=== PATIENT | male | born 1985 | race Two or more races ===

== ENCOUNTER 2018-12-23 21:07 | Emergency (ER) | payer MEDICAID, OTHER ==
[~2018-12-23] VITALS: Ht 170.2 cm; Wt 82.6 kg
--- NOTE | 2018-12-23 21:16 | NUR ---
"BIBSELF C/O SI WITH PLAN TO SHOOT SELF WITH GUN, DENIES HI " pt to bed 12, pt on monitor, all belogings in locker for safety, 1:1 sitter at bedside. vss, nad noted. pending md benavidez
--- NOTE | 2018-12-23 21:20 | NUR ---
URINE COLLECTED AND SENT TO LAB
[2018-12-23] MEDS ORDERED: OLANZAPINE 5 MG TABLET PO ONE (21:30)
[2018-12-23] MEDS ORDERED: OLANZAPINE 5 MG TABLET ONE (21:35)
[2018-12-23 21:42] LABS: BASOPHILS # (AUTO) 0.1 /CMM (0.0-0.2); BASOPHILS % (AUTO) 0.6 % (0.0-2.0); EOSINOPHILS % (AUTO) 2.3 % (0.0-6.0); HEMATOCRIT 40 % (39-51); HEMOGLOBIN 13.3 g/dL (13.5-17.5); LYMPHOCYTES % (AUTO) 32.7 % (20.0-44.0); MEAN CORPUSCULAR HGB CONC 33 g/dl (31.0-36.0); MEAN CORPUSCULAR VOLUME 81 fL (80-96); MONOCYTES # (AUTO) 0.8 /CMM (0.1-1.30); MONOCYTES % (AUTO) 8.3 % (2.0-12.0); NEUTROPHILS # (AUTO) 5.1 /CMM (1.8-8.9); NEUTROPHILS % (AUTO) 56.1 % (43.0-81.0); PLATELET COUNT (AUTO) 314 /CMM (150-450); RED BLOOD CELL COUNT(AUTO) 4.92 MIL/uL (4.5-6.0); WHITE BLOOD COUNT (AUTO) 9.2 K/uL (4.3-11.0)
[2018-12-23 21:43] LABS: APPEARANCE,URINE Clear (CLEAR); BILIRUBIN,URINE Negative (NEGATIVE); BLOOD, URINE Negative Ery/uL (NEGATIVE); COLOR,URINE Yellow (YELLOW); KETONES,URINE Negative (NEGATIVE); LEUKOCYTE ESTERASE ,URINE Negative (NEGATIVE); NITRITE, URINE Negative (NEGATIVE); PROTEIN,URINE Negative (NEGATIVE); UGLUCOSE Negative (NEGATIVE)
[2018-12-23 21:51] LABS: POTASSIUM 3.1 mmol/L (3.5-5.1)
[2018-12-23 21:57] LABS: ALBUMIN 3.8 g/dL (3.4-5.0); BILIRUBIN,DIRECT 0.1 mg/dL (0.0-0.2); BILIRUBIN,TOTAL 0.6 mg/dL (0.2-1.0); TOTAL PROTEIN, SERUM 7.9 g/dL (6.4-8.2)
[2018-12-23 21:58] LABS: SALICYLATE 1.7 mg/dL (2.8-20.0)
--- NOTE | 2018-12-23 22:16 | NUR ---
CALLED [facility] FOR TRANSFER. FAXED CLINICALS.
[2018-12-23] MEDS ORDERED: POTASSIUM CHLORIDE 20 MEQ TAB.PRT.SR PO ONE ×2 (22:30→22:38)
--- NOTE | 2018-12-23 22:54 | NUR ---
PER [facility] INTAKE. NO BEDS AVAILABLE RIGHT NOW. WILL TRY AFTER DISCHARGES AT 8AM
--- NOTE | 2018-12-24 00:03 | NUR ---
Patient is resting comfortably in bed with eyes closed. Easily aroused. VSS. SITTER AT BEDSIDE
--- NOTE | 2018-12-24 03:21 | NUR ---
Patient is resting comfortably in bed with eyes closed. Easily aroused. VSS. SITTER AT BEDSIDE
--- NOTE | 2018-12-24 06:31 | NUR ---
Patient is resting comfortably in bed with eyes closed. Easily aroused. VSS. SITTER AT BEDSIDE.
--- NOTE | 2018-12-24 07:22 | NUR ---
ASSESSED PT ON BED ASLEEP, EASILY AROUSABLE, VS STABLE, KEPT RESTED AND COMFORTABLE, AWAITING [facility] FOR BED AVAILABILITY.
--- NOTE | 2018-12-24 07:47 | NUR ---
FOOD TRAY PROVIDED.
--- NOTE | 2018-12-24 09:27 | NUR ---
AWAITING ROOM AVAILABILITY ON [facility].
--- NOTE | 2018-12-24 10:03 | NUR ---
GILLIAN contacted Pranay at [facility] inquiring about bed availability. Per Pranay, there are 22 pts on the waitlist due to no discharges over the weekend. Pranay informed GILLIAN he will call back GILLIAN in an hour with an update.
--- NOTE | 2018-12-24 10:54 | NUR ---
PT ASLEEP ON BED EASILY AROUSABLE, NOT IN RESPIRATORY DISTRESS, V/S STABLE, KEPT RESTED AND COMFORTABLE, AWAITING ROOM AT [facility].
--- NOTE | 2018-12-24 12:23 | NUR ---
FOOD TRAY PROVIED.
--- NOTE | 2018-12-24 12:41 | NUR ---
GILLIAN contacted Pranay at [facility] for an update on bed availability. Per Pranay, there are 14 pts on the waitlist and they are awaiting discharges at this time at [facility] and [place]. Addendum: 12/24/18 at 1242 by ESTEBAN FRENCH GILLIAN updated JEREMIAS Boyer with aforementioned information.
[2018-12-24 14:19] VITALS: BP 110/67
--- NOTE | 2018-12-24 14:19 | NUR ---
PT AWAKE ON BED, AAOX4, NOT IN RESPIRATORY DISTRESS, V/S STABLE, KEPT RESTED AND COMFORTABLE, AWAITING ROOM AVAILABILITY FROM [facility].
--- NOTE | 2018-12-24 15:17 | NUR ---
GILLIAN spoke with Quentin in intake regarding bed availability. Per Quentin, pt's clinicals have been forwarded to nursing supervisor major appliance assembly at [facility]. Awaiting discharges at [facility] and [place].
--- NOTE | 2018-12-24 15:54 | NUR ---
GILLIAN received a call from Quentin in intake requesting for pt's [facility] number. GILLIAN informed Quentin that pt. has [facility] and gave him the policy number.
--- NOTE | 2018-12-24 18:06 | NUR ---
ACCEPTED TO [facility] DR SHANIQUA OCASIO [phone]
--- NOTE | 2018-12-24 19:06 | NUR ---
TRANSPORTATION: JOLEEN OLSON 2000, TRIP #[id number]
== END 2018-12-24 21:34 | disposition short-term general hospital (02) ==
LOC: ER 21:08
DX: R45.851 Suicidal ideations (principal); F17.200 Nicotine dependence, unspecified, uncomplicated
CPT/HCPCS: 36415; 80048; 80076; 80305; 80307; 80329; 81001; 85025; 99285; G0480; 81000-TC